=== PATIENT | female | born 1965 | race Two or more races ===

== ENCOUNTER 2024-04-20 16:45 | Emergency (ER) | payer OTHER ==
[~2024-04-20] VITALS: Ht 160 cm; Wt 83.9 kg
[~2024-04-20 16:45] MED LIST: AMBIEN5 MG; LEVOTHYROXINE25 MCG; LORAZEPAM2 MG; LOSARTAN POTAS100 MG; SIMVASTATIN80 MG
[2024-04-20] MEDS ORDERED: METHYLPREDNISOLONE SOD SUCC 125 MG VIAL IV ONE (17:15)
[2024-04-20] MEDS ORDERED: KETOROLAC TROMETHAMINE 30 MG VIAL IV ONE (17:15)
[2024-04-20 17:35] LABS: HEMATOCRIT 40.7 % (36.0-45.00); HEMOGLOBIN 13.6 g/dL (12.0-15.00); MEAN CELL VOLUME 87.2 fL (80.00-100.00); MEAN CORPUSCULAR HEMOGLOBIN 29.1 pg (27.00-32.0); MEAN CORPUSCULAR HGB CONC 33.4 g/dl (32.0-36.0); PLATELET COUNT 261 K/uL (150-450); RED BLOOD COUNT 4.67 M/uL (4.00-6.00); RED CELL DISTRIBUTION WIDTH 13.6 % (11.5-14.5)
[2024-04-20] MEDS ORDERED: OxyCODONE HCL/APAP UD (PERCOCET) PO ONE (18:30)
[2024-04-20] MEDS ORDERED: DULCOLAX STOOL100 M1 PO (18:32)
[2024-04-20] MEDS ORDERED: KETO10TA2 PO (18:32)
[2024-04-20] MEDS ORDERED: ANALPRAM HC 2.530 GM RECTAL (18:32)
== END 2024-04-20 19:21 | disposition home or self-care (01) ==
LOC: ER 16:45
PROVIDERS: General Practice
DX: K60.2 Anal fissure, unspecified (principal); K64.9 Unspecified hemorrhoids; I10 Essential (primary) hypertension; E03.9 Hypothyroidism, unspecified
CPT/HCPCS: 36415; 96365; 99283; J1885

== ENCOUNTER 2024-07-07 07:07 | Day surgery (SDC) | payer OTHER ==
[2024-06-30 10:46] LABS: HEMATOCRIT 38.8 % (36.0-45.00); HEMOGLOBIN 13.2 g/dL (12.0-15.00); MEAN CELL VOLUME 87.2 fL (80.00-100.00); MEAN CORPUSCULAR HEMOGLOBIN 29.7 pg (27.00-32.0); PLATELET COUNT 264 K/uL (150-450); RED BLOOD COUNT 4.45 M/uL (4.00-6.00); RED CELL DISTRIBUTION WIDTH 14.1 % (11.5-14.5)
[2024-06-30 10:59] LABS: URINE APPEARANCE Clear; URINE BILIRRUBIN Negative (NEGATIVE); URINE BLOOD Negative; URINE COLOR Dark Yellow; URINE GLUCOSE Negative (NEGATIVE); URINE KETONE Trace (NEGATIVE); URINE LEUKOCYTE Negative; URINE NITRATE Negative; URINE PROTEIN Negative (NEGATIVE)
[2024-06-30 11:01] LABS: INR 1.01; PARTIAL THROMBOPLASTIN TIME 26.4 SECONDS (22.0-34.0)
[2024-06-30 11:01] LABS: URINE BACTERIA 27.7 uL (0.0-1933); URINE EPITHELIAL CELLS 1.8 uL (0.0-38.8); URINE RBC 18.4 uL (0.0-20.8)
[2024-06-30 11:12] LABS: ALBUMIN 3.7 gm/dL (3.4-5.0); BILIRUBIN TOTAL 0.34 mg/dL (0.3-1.2); CALCIUM 9.4 mg/dL (8.5-10.1); CREATININE SERUM 0.92 mg/dL (0.55-1.02); GFR 62.48; GLOBULINA 3.1 G/DL (2.4-3.5); POTASSIUM 4.48 mEq/L (3.5-5.1); TOTAL PROTEIN 6.8 gm/dL (6.4-8.2)
[2024-06-30 11:32] LABS: URINE CAST 0.15 uL (0.0-1.40); URINE CRYSTALS MODERATE /HPF
[~2024-07-07 07:07] MED LIST changes: +ANALPRAM HC 2.530 GM RECTAL; +DULCOLAX STOOL100 M1 PO; +KETO10TA2 PO
[2024-07-07] MEDS ORDERED: LIDOCAINE HCL 1%/EPINEPHRINE 20ML VIAL IJ ONE (12:00)
[2024-07-07] MEDS ORDERED: METRONIDAZOLE/SODIUM CHLORIDE 500 MG/100 ML PIGGYBACK IV ONE (12:00)
[2024-07-07] MEDS ORDERED: CHLORHEXIDINE GLUCONATE 120 ML BOTTLE TOP ONE (12:00)
[2024-07-07] MEDS ORDERED: DIBUCAINE 30 GM TUBE RECTAL ONE (12:00)
[2024-07-07] MEDS ORDERED: HEMOSTATIC MATRIX 1 KIT KIT TOP ONE (12:00)
[2024-07-07] MEDS ORDERED: BUPIVACAINE HCL 30 ML VIAL IJ ONE (12:00)
[2024-07-07] MEDS ORDERED: CEFTRIAXONE SODIUM 2,000 MG VIAL IV ONE (12:00)
[2024-07-07] MEDS ORDERED: POVIDONE-IODINE 118 ML BOTT TOP ONE (12:00)
[2024-07-07] MEDS ORDERED: PERCOCET 5-3251 EACH PO (12:54)
[2024-07-07] MEDS ORDERED: RECTICARE30 GM TOP (12:55)
== END 2024-07-07 17:40 | disposition home or self-care (01) ==
LOC: CIR.AMB 07:07
PROVIDERS: ATTEND Surgery
DX: K62.4 Stenosis of anus and rectum (principal); K60.2 Anal fissure, unspecified